=== PATIENT | female | born 1980 | race Caucasian/White ===

== ENCOUNTER 2020-03-31 15:25 | Emergency (ER) | payer BC ==
[~2020-03-31] VITALS: Ht 172.7 cm; Wt 90.7 kg
[2020-03-31 15:36] VITALS: BP 162/94
[2020-03-31] MEDS ORDERED: GELATIN SPONGE,ABSORBABLE 1 SPONGE SPONGE TP ONE (15:51)
[2020-03-31] MEDS: IBUPROFEN 600 MG TABLET PO ONE (16:47)
[2020-03-31] MEDS ORDERED: IBUPROFEN 600 MG TABLET ONE (16:47)
--- NOTE | 2020-03-31 16:47 | NUR ---
Patient discharged to home in stable condition. Written and verbal after care instructions given. Patient verbalizes understanding of instruction. Pt ambulatory with a steady gait
== END 2020-03-31 16:49 | disposition home or self-care (01) ==
LOC: ER 15:27
DX: S61.211A Laceration without foreign body of left index finger without damage to nail, initial encounter (principal); W26.8XXA Contact with other sharp object(s), not elsewhere classified, initial encounter; Y93.89 Activity, other specified; Y92.89 Other specified places as the place of occurrence of the external cause; Y99.8 Other external cause status
CPT/HCPCS: 99282; A4217; A6403

== ENCOUNTER 2020-04-25 14:38 | Emergency (ER) | payer BC ==
--- NOTE | 2020-04-25 15:14 | NUR ---
called - no answer
--- NOTE | 2020-04-25 15:19 | NUR ---
Patient left without being seen by ER Physician
== END 2020-04-25 15:20 | disposition left against medical advice (07) ==
LOC: ER 14:42
DX: Z53.21 Procedure and treatment not carried out due to patient leaving prior to being seen by health care provider (principal)

== ENCOUNTER 2020-04-25 16:10 | Emergency (ER) | payer BC ==
[~2020-04-25] VITALS: Ht 172.7 cm; Wt 86.2 kg
[2020-04-25 16:52] VITALS: BP 115/68
--- NOTE | 2020-04-25 18:21 | NUR ---
patient left before physically eval by
== END 2020-04-25 18:21 | disposition home or self-care (01) ==
LOC: ER 16:12
DX: R05 Cough (principal); R43.0 Anosmia; Z53.21 Procedure and treatment not carried out due to patient leaving prior to being seen by health care provider